=== PATIENT | female | born 1970 | race Hispanic/Latino ===

== ENCOUNTER 2017-12-12 06:14 | Day surgery (SDC) | payer MEDICAID ==
--- OUTSIDE RECORDS SUMMARY | 2017-12-12 06:46 | XMS REPORT ---
:1970 Author Organization [facility] Address [address] [place] [address] Dr. Ornelas [address] [place] [id number] Care Team Providers Name Role Phone UNKNOWN, REFFERING Primary Care Provider Unavailable SIRI PYLE Unavailable Unavailable Problems This patient has no known problems. Allergies, Adverse Reactions, Alerts This patient has no known allergies or adverse reactions. Medications This patient has no known medications. Encounters Start End Encounter Admission Attending Care Care Encounter Date/Time Date/Time Type Type Clinicians Facility Department ID 2017-08-22 2017-08-22 [id number] 22:07:00 22:07:00 SIRI Results Test Description Test Time Test Comments Text Results Atomic Results Result Comments CBC with Differential 2017-08-23 03:04:00 Test Item Value Reference Range Comments WBC (test code=WBC) 9.1 K/cumm 4.4-10.5 RBC (test code=RBC) 4.26 M/cumm 3.75-5.20 Hemoglobin (test code=HGB) 9.0 gm/dL 12.2-14.8 Hematocrit (test code=HCT) 33.4 % 36.5-44.4 MCV (test code=MCV) 78.5 fL 80-100 MCH (test code=MCH) 21.1 pg 27.0-32.5 MCHC (test code=MCHC) 26.9 g/dL 32.0-37.5 RDW (test code=RDW) 15.0 % 11.5-14.5 Platelet Count (test code=PLTCT) 344 K/cumm 140-440 MPV (test code=MPV) 10.6 fL Diff Method (test code=DIFFM) Manual Neutrophil (test code=NEUT) 65.0 % 36-70 Lymphocyte (test code=LYMPH) 28.0 % 12-44 Monocyte (test code=MONO) 3.0 % 0-11 Eosinophil (test code=EOS) 4.0 % 0-7 Neutro Abs (test code=ANEUT) 5.9 K/cumm 1.6-7.4 Lymph Abs (test code=ALYMPH) 2.5 K/cumm 0.5-4.6 Spencer Abs (test code=AMONO) 0.3 K/cumm 0.0-1.2 Eos Abs (test code=AEOS) 0.36 K/cumm 0.00-0.74 RBC Morphology (test code=RBCMRPH) Mod Hypochromia Platelet Est (test code=PLTEST) Normal Platelet on Smear Lipid [id number] 22:55:00 Test Item Value Reference Range Comments Cholesterol (test 258 mg/dL 0-200 code=CHOL) Triglycerides (test 122 mg/dL 9-200 code=TRIG) HDL (test code=HDL) 77 mg/dL 50-60 Chol/HDL (test 3.4 Ratio 0.0-4.4 code=CHOLPHDL) LDL, Calculated (test 157 0-130 (NOTE)RISK OF HEART code=LDLC) DISEASEPublished by [place] Heart AssociationAnalyte Optimal Boderline Increased RiskCHOL <200 200-239 >240TRIG <150 150-199 >200HDL Male: >60 <40HDL Female: >60 <50LDL <100 130-159 >160LDL NEAR OPTIMAL IS 100-129 VLDL (test code=VLDL) 24 mg/dL 5-40 LDL/HDL (test code=LDLPHDL) 2 [id number] 22:55:00 Test Item Value Reference Range Comments NT ProBnp (test code=PBNP) 8 pg/mL 0-124 Comprehensive Metabolic [id number] 22:55:00 Test Item Value Reference Range Comments Sodium (test code=NA) 140 mmol/L 135-145 Potassium (test code=K) 4.8 mmol/L 3.5-5.1 Chloride (test code=CL) 98 mmol/L 98-105 Carbon Dioxide (test 31 mmol/L 22-29 code=CO2) Glucose (test code=GLU) 117 mg/dL 70-115 Blood Urea Nitrogen 14 mg/dL 6-20 (test code=BUN) Creatinine (test 0.6 mg/dL 0.5-0.9 code=CREAT) Calcium (test code=CA) 9.5 mg/dL 8.3-10.5 Prot Total (test 7.8 g/dL 6.4-8.3 code=TP) Albumin (test code=ALB) 4.3 g/dL 3.5-5.2 A/G Ratio (test 1.2 Ratio code=AGRATIO) Globulin (test 3.5 2.9-3.1 code=GLOB) Bili Total (test <0.1 mg/dL 0.1-0.9 code=TBIL) Alk Phos (test 153 U/L 35-104 code=APHOS) AST (test code=AST) 16 U/L 1-32 ALT (test code=ALT) 22 U/L 1-33 BUN/Creatinine Ratio 23.3 (test code=BCRATIO) Anion Gap (test 11 mmol/L 7-16 code=AGAP) Estimated GFR (test >60 mL/min/1.73m2 eGFR (estimated Glomerular code=GFR) Filtration Rate) is an estimated value,calculated from the patient's serum creatinine using the MDRD equation.It is NOT the patient's actual GFR. The eGFR provides a more clinicallyuseful measure of kidney disease than serum creatinine alone.This calculation takes sex and race into account, if the informationis provided. If the race is not provided, and the patient isAfrican-[place], multiply by 1.212. If sex is not provided, and thepatient is female, multiply by 0.742. Results for patients <18 years ofage have not been validated by the MDRD study and should be interpretedwith caution.eGFR Result Interpretation:eGFR > or=60 is in the Normal RangeeGFR < 60 may mean kidney diseaseeGFR < 15 may mean kidney failureRanges recommended by the National Kidney Foundation,http://nkdep.nih .gov D-Dimer, [id number] 22:42:00 Test Item Value Reference Range Comments D-Dimer, Quant (test 296 ng/mL 0-500 Please note Change in unit of code=DDQNT) measure from mg/L FEU to ng/mLA cutoff of less than 500 ng/mL DD has a negative predictive value of100% for DVT qel009% for PE.When using D-Dimer to help rule out DVT or PE, clinical information anddisease probability should be considered.Elevated D-Dimer values are not specific for thromboembolism. B-Type Natriuretic [id number] 14:13:00 Test Item Value Reference Range Comments B-Type Natriuretic Peptide (test [id number]) <2.5 pg/mL 0.0-100.0 CBC with [id number] 21:56:00 Test Item Value Reference Range Comments WBC (test code=WBC) 6.5 K/cumm 4.4-10.5 RBC (test code=RBC) 4.29 M/cumm 3.75-5.20 Hemoglobin (test code=HGB) 10.8 gm/dL 12.2-14.8 Hematocrit (test code=HCT) 34.5 % 36.5-44.4 MCV (test code=MCV) 80.4 fL 80-100 MCH (test code=MCH) 25.2 pg 27.0-32.5 MCHC (test code=MCHC) 31.3 g/dL 32.0-37.5 RDW (test code=RDW) 17.2 % 11.5-14.5 Platelet Count (test code=PLTCT) 288 K/cumm 140-440 MPV (test code=MPV) 8.7 fL Diff Method (test code=DIFFM) Auto Neutrophil (test code=NEUT) 56.8 % 36-70 Lymphocyte (test code=LYMPH) 31.9 % 12-44 Monocyte (test code=MONO) 8.1 % 0-11 Eosinophil (test code=EOS) 2.8 % 0-7 Basophil (test code=BASO) 0.4 % 0-2 Neutro Abs (test code=ANEUT) 3.7 K/cumm 1.6-7.4 Lymph Abs (test code=ALYMPH) 2.1 K/cumm 0.5-4.6 Spencer Abs (test code=AMONO) 0.5 K/cumm 0.0-1.2 Eos Abs (test code=AEOS) 0.18 K/cumm 0.00-0.74 Baso Abs (test code=ABASO) 0.0 K/cumm 0.00-0.21 Hypochromic (test code=HYPO) Slight Comprehensive Metabolic [id number] 20:44:00 Test Item Value Reference Range Comments Sodium (test code=NA) 135 mmol/L 135-145 Potassium (test code=K) 4.3 mmol/L 3.5-5.1 Chloride (test code=CL) 97 mmol/L 98-105 Carbon Dioxide (test 26 mmol/L 22-29 code=CO2) Glucose (test code=GLU) 89 mg/dL 70-115 Blood Urea Nitrogen 12 mg/dL 6-20 (test code=BUN) Creatinine (test 0.6 mg/dL 0.5-0.9 code=CREAT) Calcium (test code=CA) 8.8 mg/dL 8.3-10.5 Prot Total (test 7.2 g/dL 6.4-8.3 code=TP) Albumin (test code=ALB) 4.2 g/dL 3.5-5.2 A/G Ratio (test 1.4 Ratio code=AGRATIO) Globulin (test 3.0 2.9-3.1 code=GLOB) Bili Total (test <0.1 mg/dL 0.1-0.9 code=TBIL) Alk Phos (test 167 U/L 35-104 code=APHOS) AST (test code=AST) 17 U/L 1-32 ALT (test code=ALT) 23 U/L 1-33 BUN/Creatinine Ratio 20.0 (test code=BCRATIO) Anion Gap (test 12 mmol/L 7-16 code=AGAP) Estimated GFR (test >60 mL/min/1.73m2 eGFR (estimated Glomerular code=GFR) Filtration Rate) is an estimated value,calculated from the patient's serum creatinine using the MDRD equation.It is NOT the patient's actual GFR. The eGFR provides a more clinicallyuseful measure of kidney disease than serum creatinine alone.This calculation takes sex and race into account, if the informationis provided. If the race is not provided, and the patient isAfrican[place], multiply by 1.212. If sex is not provided, and thepatient is female, multiply by 0.742. Results for patients <18 years ofage have not been validated by the MDRD study and should be interpretedwith caution.eGFR Result Interpretation:eGFR > or=60 is in the Normal RangeeGFR < 60 may mean kidney diseaseeGFR < 15 may mean kidney failureRanges recommended by the National Kidney Foundation,http://nkdep.nih .gov Lipid [id number] 20:44:00 Test Item Value Reference Range Comments Cholesterol (test 253 mg/dL 0-200 code=CHOL) Triglycerides (test 124 mg/dL 9-200 code=TRIG) HDL (test code=HDL) 83 mg/dL 50-60 Chol/HDL (test 3.0 Ratio 0.0-4.4 code=CHOLPHDL) LDL, Calculated (test 145 0-130 (NOTE)RISK OF HEART code=LDLC) DISEASEPublished by [place] Heart AssociationAnalyte Optimal Boderline Increased RiskCHOL <200 200-239 >240TRIG <150 150-199 >200HDL Male: >60 <40HDL Female: >60 <50LDL <100 130-159 >160LDL NEAR OPTIMAL IS 100-129 VLDL (test code=VLDL) 25 mg/dL 5-40 LDL/HDL (test code=LDLPHDL) 2
[2017-12-12] MEDS ORDERED: Ringers Lactate 1,000 ML IV ONE (06:57)
[2017-12-12] MEDS ORDERED: PROPOFOL 200 MG/20 ML VIAL IV ONE ×2 (07:38→09:23)
[2017-12-12] MEDS ORDERED: LIDOCAINE 1% MPF 2 ML AMPULE ONE (07:38)
[2017-12-12] MEDS ORDERED: HYDROCODONE/APAP 5/325 MG TAB ONE (10:34)
--- NOTE | 2017-12-12 11:06 | OP ---
Date of Procedure: 12/12/2017 Surgeon: Juan Diego Hicks MD Procedure Performed: Colonoscopy. Indication For Procedure: Rectal bleeding, iron deficiency anemia. Plan For Anesthesia: Monitored anesthesia care. Complexity: High due to the patient's comorbidities. Technique: After obtaining informed consent from the patient, explaining risks and complications whi ch include, but are not limited to bleeding, infection, perforation, and anesthesia complications. T he patient was placed in the left lateral position and sedation was given. From then on, a digital r ectal exam was performed. Scope was advanced through the rectum and carefully guided up till the cec um. The cecum was identified by the appendiceal orifice and ileocecal valve. Subsequently, the scop e gradually withdrawn while carefully examining the mucosa. The scope withdrawal time was 10 minutes . Quality of prep according to Coral prep score; right side 2+, middle 2+, left side 1 which is equ al to 5 x 9. Reasonable visualization was obtained. Findings: Scattered diverticulosis throughout the entire length of the colon. These were small to m edium in size. No colitis or mass lesions seen. Retroflexion did reveal medium size internal hemorr hoids with some stigmata of bleeding. Also, digital rectal exam revealed large external hemorrhoids. Random biopsies were taken from the colon to rule out microscopic colitis. Complications: None. Tolerance To Anesthesia: Excellent. Postoperative Diagnosis: Diverticulosis and internal hemorrhoids as well as external hemorrhoids. Plan: 1.Await pathology results. 2.If not already done, we will do small bowel follow-through and consider capsule endoscopy if not d one in regard to the bright red bleeding, likely related to hemorrhoids. We would recommend surgical evaluation. Follow up in the GI clinic in 2 weeks. US/MODL Voice ID: [id number] Report ID: [id number]
== END 2017-12-12 09:46 | disposition home or self-care (01) ==
LOC: OR 06:14
PROVIDERS: ATTEND Internal Medicine Gastroenterology
PROC: 0DBE8ZX Excision of Large Intestine, Via Natural or Artificial Opening Endoscopic, Diagnostic (ICD-10-PCS; principal; 2017-12-12 07:30)
DX: K57.90 Diverticulosis of intestine, part unspecified, without perforation or abscess without bleeding (principal); K64.8 Other hemorrhoids; D50.9 Iron deficiency anemia, unspecified; K64.4 Residual hemorrhoidal skin tags; E11.9 Type 2 diabetes mellitus without complications; I10 Essential (primary) hypertension; E66.9 Obesity, unspecified; J44.9 Chronic obstructive pulmonary disease, unspecified; Z86.73 Personal history of transient ischemic attack (TIA), and cerebral infarction without residual deficits; Z80.0 Family history of malignant neoplasm of digestive organs
CPT/HCPCS: 88305; J2001

== ENCOUNTER 2021-02-19 20:18 | Emergency (ER) | payer OTHER, SELFPAY ==
--- OUTSIDE RECORDS SUMMARY | 2021-02-19 20:24 | XMS REPORT | Continuity of Care Document ---
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 in Serum or Plasma (test code = 3097-3) sodium level (test code = sodium 139 mmol/L 135-145 level) potassium level (test code = 4.4 mmol/L 3.5-5.2 potassium level) chloride level (test code = 101 mmol/L 98-108 chloride level) CO2 (test code = CO2) 29 mmol/L 21-32 anion gap (test code = anion gap) 13.4 mEq/L 12-20 calcium level (test code = 9.5 mg/dL 8.6-10.0 calcium level) total protein (test code = total 7.6 g/dL 6.6-8.7 protein) albumin (test code = albumin) 4.4 g/dL 3.5-5.2 globulin (test code = globulin) 3.2 gm/dL A/G ratio (test code = A/G ratio) 1.4 >1.0 bilirubin,total (test code = <0.3 0.0-1.2 bilirubin,total) AST/SGOT (test code = AST/SGOT) 30 U/L 15-32 Alanine aminotransferase 31 U/L 0-33 [Enzymatic activity/volume] in Serum or Plasma (test code = 1742-6) Alkaline phosphatase [Enzymatic 201 U/L 35-105 H activity/volume] in Serum or Plasma (test code = 6768-6) [facility] W Auto Differential panel - [id number] 01:10:00 Test Item Value Reference Range Interpretation Comments white blood count (test code = 8.3 K/uL 4.0-11.5 white blood count) red blood count (test code = red 4.38 M/uL 3.80-5.20 blood count) hemoglobin (test code = 10.5 g/dL 10.5-15.7 hemoglobin) hematocrit (test code = 35.4 % 34.0-50.0 hematocrit) MCV [Entitic volume] (test code = 80.8 fL 86-100 L 88500-6) mean corpuscular hemoglobin (test 24.0 pg 26.2-33.4 L code = mean corpuscular hemoglobin) mean corpuscular HGB conc (test 29.7 g/dL 30-34 L code = mean corpuscular HGB conc) red cell distribution width (test 14.7 % 12.0-15.5 code = red cell distribution width) platelet count (test code = 272 K/uL 165-450 platelet count) mean platelet volume (test code = 9.2 fL 9.4-12.6 L mean platelet volume) Segmented neutrophils/100 66.8 % 44.4-80.1 leukocytes in Blood (test code = 04252-3) Immature granulocytes [#/volume] 0.0 K/uL 0.0-0.03 in Blood (test code = 82257-1) lymphocyte% (test code = 23.7 % 10.0-50.0 lymphocyte%) mono % (test code = mono %) 6.4 % 3.6-12.0 eos % (test code = eos %) 2.6 % 0.0-5.4 Basophils/100 leukocytes in 0.1 % 0.1-1.2 Unspecified specimen (test code = 81893-1) Band form neutrophils [#/volume] 5.55 K/uL 1.56-6.13 in Blood (test code = 38015-7) Lymphocytes [#/volume] in 2.0 K/uL 1.18-3.74 Unspecified specimen by Automated count (test code = 53116-2) mono # (test code = mono #) 0.53 K/uL 0.24-0.86 eos # (test code = eos #) 0.22 K/uL 0.04-0.36 basophil # (test code = basophil 0.01 K/uL 0.01-0.08 #) NRBC% (test code = NRBC%) 0 /100 WBC 0-0.2 NRBC# (test code = NRBC#) 0 K/uL [facility] - Serum or Plasma 2020-12-02 01:10:00 Test Item Value Reference Range Interpretation Comments Glucose [Mass/volume] in Serum or 122 mg/dL 74-106 H Plasma (test code = 2345-7) Urea nitrogen [Mass/volume] in 9 mg/dL 6-20 Serum or Plasma (test code = 3094-0) osmolality calculated,serum (test 278 mOsm/kg 280-300 L code = osmolality calculated,serum) creatinine (test code = 0.5 mg/dL 0.50-0.90 creatinine) glomerular filtration rate (test >60.00 code = glomerular filtration rate) Urea nitrogen/Creatinine [Mass 18.0 12-20 Ratio] in Serum or Plasma (test code = 3097-3) sodium level (test code = sodium 139 mmol/L 135-145 level) potassium level (test code = 4.4 mmol/L 3.5-5.2 potassium level) chloride level (test code = 101 mmol/L 98-108 chloride level) CO2 (test code = CO2) 29 mmol/L 21-32 anion gap (test code = anion gap) 13.4 mEq/L 12-20 calcium level (test code = 9.5 mg/dL 8.6-10.0 calcium level) total protein (test code = total 7.6 g/dL 6.6-8.7 protein) albumin (test code = albumin) 4.4 g/dL 3.5-5.2 globulin (test code = globulin) 3.2 gm/dL A/G ratio (test code = A/G ratio) 1.4 >1.0 bilirubin,total (test code = <0.3 0.0-1.2 bilirubin,total) AST/SGOT (test code = AST/SGOT) 30 U/L 15-32 Alanine aminotransferase 31 U/L 0-33 [Enzymatic activity/volume] in Serum or Plasma (test code = 1742-6) Alkaline phosphatase [Enzymatic 201 U/L 35-105 H activity/volume] in Serum or Plasma (test code = 6768-6) [facility] [Mass/volume] in Serum or [id number] 00:00:00 Test Item Value Reference Range Interpretation Comments phenytoin dilantin (test code = 15.0 ug/mL 10.0-20.0 phenytoin dilantin) [facility] [Mass/volume] in Serum or [id number] 00:00:00 Test Item Value Reference Range Interpretation Comments phenytoin dilantin (test code = 15.0 ug/mL 10.0-20.0 phenytoin dilantin) [facility] System[facility]inal[facility] macro (dipstick) panel - [id number] 14:01:52 Test Item Value Reference Range Interpretation Comments Leukocytes (test code = Leukocytes) Negative Nitrite (test code = Nitrite) negative Urobilinogen (test code = .2 Urobilinogen) Protein (test code = Protein) Negative pH (test code = pH) 5.5 Blood (test code = Blood) Negative Specific Gomer (test code = 1.025 Specific Gomer) Ketone (test code = Ketone) Negative Bilirubin (test code = Bilirubin) Negative Glucose (test code = Glucose) Negative Appearance (test code = Appearance) Clear Color (test code = Color) Yellow [facility] [id number] 23:25:34 Test Item Value Reference Range Interpretation Comments Sodium Level (test code = Sodium 142.0 mmol/L 135.0-145.0 Level) Potassium Level (test code = 4.4 mmol/L 3.5-5.1 Potassium Level) Chloride Level (test code = 102 mmol/L 98-105 Chloride Level) CO2 (test code = CO2) 27 mmol/L 22-29 Anion Gap (test code = Anion 13 mmol/L 7-16 Gap) BUN (test code = BUN) 9.90 mg/dL 6.00-20.00 Creatinine Level (test code = 0.60 mg/dL 0.50-0.90 Creatinine Level) BUN/Creat Ratio (test code = 16 N BUN/Creat Ratio) Glucose Level (test code = 127 mg/dL 70-115 H Glucose Level) Calcium Level (test code = 9.1 mg/dL 8.3-10.5 Calcium Level) Alk Phos (test code = Alk Phos) 230 U/L 35-104 H Bilirubin Total (test code = <0.1 mg/dL 0.1-0.9 Bilirubin Total) Albumin Level (test code = 4.3 g/dL 3.5-5.2 Albumin Level) Protein Total (test code = 7.1 g/dL 6.4-8.3 Protein Total) ALT (test code = ALT) 34 U/L 1-33 H AST (test code = AST) 26 U/L 1-32 Globulin (test code = Globulin) 2.8 g/dL 2.9-3.1 L A/G Ratio (test code = A/G 1.5 ratio N Ratio) Comprehensive Metabolic [id number] 23:25:34 Test Item Value Reference Range Interpretation Comments Sodium Level (test 142.0 mmol/L 135.0-145.0 code = Sodium Level) Potassium Level 4.4 mmol/L 3.5-5.1 (test code = Potassium Level) Chloride Level (test 102 mmol/L 98-105 code = Chloride Level) CO2 (test code = 27 mmol/L 22-29 CO2) Anion Gap (test code 13 mmol/L 7-16 = Anion Gap) BUN (test code = 9.90 mg/dL 6.00-20.00 BUN) Creatinine Level 0.60 mg/dL 0.50-0.90 (test code = Creatinine Level) BUN/Creat Ratio 16 N (test code = BUN/Creat Ratio) Glucose Level (test 127 mg/dL 70-115 H code = Glucose Level) Calcium Level (test 9.1 mg/dL 8.3-10.5 code = Calcium Level) Alk Phos (test code 230 U/L 35-104 H = Alk Phos) Bilirubin Total <0.1 mg/dL 0.1-0.9 (test code = Bilirubin Total) Albumin Level (test 4.3 g/dL 3.5-5.2 code = Albumin Level) Protein Total (test 7.1 g/dL 6.4-8.3 code = Protein Total) ALT (test code = 34 U/L 1-33 H ALT) AST (test code = 26 U/L 1-32 AST) Globulin (test code 2.8 g/dL 2.9-3.1 L = Globulin) A/G Ratio (test code 1.5 ratio N = A/G Ratio) eGFR AA (test code = >60 N eGFR (e stimated eGFR AA) mL/min/1.73 m2 Glomerular Filtration Rate ) is an estimated va lue, calculated from the patient's serum creatinine usin g the MDRD equation. It is NOT the patient 's actual GFR. The eGFR provides a more clinically usef ul measure of kidn ey disease than se rum creatinine alone.This calculation kalli es sex and race in to account, if the information is provided. If th e race is not provided, and t he patient is -Caroline n, multiply by 1.2 12. If sex is not provided, and t he patient is fema le, multiply by 0.7 42. Results for pat ients <18 years of ag e have not been validated by th e MDRD study and should be interpreted wit h caution. eGFR R esult Interpretation: eGFR > or = 60 is in the Normal RangeeGF R < 60 may mean kid yadi diseaseeGFR < 1 5 may mean kidney failure Rang es recommended by the National Kidney Foundation, http://nkdep.ni h.gov Lipid [id number] 23:25:34 Test Item Value Reference Range Interpretation Comments Cholesterol Total 245 mg/dL 0-200 H RISK OF HE ART (test code = DISEASEPublishe d by Cholesterol Total) [place] [employer] Mounika lyte Optimal Borderl ine Increased RiskC HOL <200 200-239 >2 40TRIG <150 150-199 >2 00HDL Male >60 <40H DL Female >60 <5 0LDL <100 130-159 >1 60LDL Near optimal is 100-129 Triglycerides (test 133 mg/dL 9-200 code = Triglycerides) HDL (test code = HDL) 69 mg/dL 50-60 H LDL (test code = LDL) 150 mg/dL 0-130 H The eq uation being used in this calcula tion is LDL = (Chol - H DL) - (Trig / 5) VLDL (test code = 27 mg/dL 5-40 The equati on being used VLDL) in this calcula tion is VLDL = Trig / 5 Chol/HDL (test code = 3.6 ratio 0.0-4.4 Chol/HDL) LDL/HDL Ratio (test 2 N The equa tion being used code = LDL/HDL Ratio) in thi s calculation is LDL/HDL Ratio=L DL Calc/HDL Chol Comprehensive Metabolic [id number] 23:25:34 Test Item Value Reference Range Interpretation Comments Sodium Level (test 142.0 mmol/L 135.0-145.0 code = Sodium Level) Potassium Level 4.4 mmol/L 3.5-5.1 (test code = Potassium Level) Chloride Level (test 102 mmol/L 98-105 code = Chloride Level) CO2 (test code = 27 mmol/L 22-29 CO2) Anion Gap (test code 13 mmol/L 7-16 = Anion Gap) BUN (test code = 9.90 mg/dL 6.00-20.00 BUN) Creatinine Level 0.60 mg/dL 0.50-0.90 (test code = Creatinine Level) BUN/Creat Ratio 16 N (test code = BUN/Creat Ratio) Glucose Level (test 127 mg/dL 70-115 H code = Glucose Level) Calcium Level (test 9.1 mg/dL 8.3-10.5 code = Calcium Level) Alk Phos (test code 230 U/L 35-104 H = Alk Phos) Bilirubin Total <0.1 mg/dL 0.1-0.9 (test code = Bilirubin Total) Albumin Level (test 4.3 g/dL 3.5-5.2 code = Albumin Level) Protein Total (test 7.1 g/dL 6.4-8.3 code = Protein Total) ALT (test code = 34 U/L 1-33 H ALT) AST (test code = 26 U/L 1-32 AST) Globulin (test code 2.8 g/dL 2.9-3.1 L = Globulin) A/G Ratio (test code 1.5 ratio N = A/G Ratio) eGFR AA (test code = >60 N eGFR (e stimated eGFR AA) mL/min/1.73 m2 Glomerular Filtration Rate ) is an estimated va lue, calculated from the patient's serum creatinine usin g the MDRD equation. It is NOT the patient 's actual GFR. The eGFR provides a more clinically usef ul measure of kidn ey disease than se rum creatinine alone.This calculation kalli es sex and race in to account, if the information is provided. If th e race is not provided, and t he patient is -Caroline n, multiply by 1.2 12. If sex is not provided, and t he patient is fema le, multiply by 0.7 42. Results for pat ients <18 years of ag e have not been validated by [facility] MDRD study and should be interpreted wit h caution. eGFR R esult Interpretation: eGFR > or = 60 is in the Normal RangeeGF R < 60 may mean kid yadi diseaseeGFR < 1 5 may mean kidney failure Rang es recommended by the National Kidney Foundation, http://nkdep.ni h.gov eGFR Non-AA (test >60.00 N eGFR (anurag mated code = eGFR Non-AA) mL/min/1.73 m2 Glomer ular Filtration Rate ) is an estimated va lue, calculated from the patient's serum creatinine usin g the MDRD equation. It is NOT the patient 's actual GFR. The eGFR provides a more clinically usef ul measure of kidn ey disease than se rum creatinine alone.This calculation kalli es sex and race in to account, if the information is provided. If th e race is not provided, and t he patient is -Caroline n, multiply by 1.2 12. If sex is not provided, and t he patient is fema le, multiply by 0.7 42. Results for pat ients <18 years of ag e have not been validated by [facility] MDRD study and should be interpreted wit h caution. eGFR R esult Interpretation: eGFR > or = 60 is in the Normal RangeeGF R < 60 may mean kid yadi diseaseeGFR < 1 5 may mean kidney failure Rang es recommended by the National Kidney Foundation, http://nkdep.ni h.gov IG [id number] 22:56:30 Test Item Value Reference Range Interpretation Comments IG (test code = IG) 0.2 % 0.0-5.0 IG Abs (test code = IG Abs) 0 x10 N Complete Blood Count with [id number] 22:56:29 Test Item Value Reference Range Interpretation Comments WBC (test code = WBC) 5.7 x10 4.4-10.5 RBC (test code = RBC) 4.54 x10 3.75-5.20 Hgb (test code = Hgb) 13.3 g/dL 12.2-14.8 Hct (test code = Hct) 43.6 % 36.5-44.4 MCV (test code = MCV) 96.00 fL 80.00-100.00 MCHC (test code = 30.50 g/dL 32.00-37.50 L MCHC) MCH (test code = MCH) 29.3 pg 27.0-32.5 RDW CV (test code = 14.6 % 11.5-14.5 H RDW CV) Platelets (test code = 159.0 x10 140.0-440.0 Platelets) MPV (test code = MPV) 11.4 fL N Slide Review (test Auto Auto Result cr eated by code = Slide Review) GL_SJM_ SLIDE_REV_AUTO nRBC (test code = 0 N nRBC) NRBC Abs (test code = 0.00 x10 N NRBC Abs) IPF (test code = IPF) 0 % N Automated [id number] 22:56:29 Test Item Value Reference Range Interpretation Comments Neutro Auto (test code = Neutro 55.8 % 36.0-70.0 Auto) Lymph Auto (test code = Lymph Auto) 36.9 % 12.0-44.0 Menard Auto (test code = Menard Auto) 4.5 % 0.0-11.0 Eos, Auto (test code = Eos, Auto) 2.3 % 0.0-7.0 Basophil Auto (test code = Basophil 0.3 % 0.0-2.0 Auto) Neutro Absolute (test code = Neutro 3.2 x10 1.6-7.4 Absolute) Lymph Absolute (test code = Lymph 2.11 x10 .50-4.60 Absolute) Menard Absolute (test code = Menard .26 x10 .00-1.20 Absolute) Eos Absolute (test code = Eos 0.13 x10 0.00-0.74 Absolute) Baso Absolute (test code = Baso 0.02 x10 0.00-0.21 Absolute) [id number] 07:23:00 Test Item Value Reference Range Interpretation Comments prothrombin time (test code = 9.9 seconds 10.3-12.3 L prothrombin time) INR in Blood by Coagulation assay 0.90 (test code = 50449-4) [facility] [id number] 07:23:00 Test Item Value Reference Range Interpretation Comments INR in Blood by Coagulation 28.9 seconds 22.5-37.0 assay (test code = 65638-0) [facility]/[id number] 07:23:00 Test Item Value Reference Range Interpretation Comments prothrombin time (test code = 9.9 seconds 10.3-12.3 L prothrombin time) INR in Blood by Coagulation assay 0.90 (test code = 87682-3) [facility] [id number] 07:23:00 Test Item Value Reference Range Interpretation Comments INR in Blood by Coagulation 28.9 seconds 22.5-37.0 assay (test code = 62533-1) [facility] [id number] 07:00:00[facility] [id number] 07:00:00Results [facility] W Auto Differential panel - [id number] 10:32:00 Test Item Value Reference Range Interpretation Comments white blood count (test code = 6.4 K/uL 4.0-11.5 white blood count) red blood count (test code = red 3.90 M/uL 3.80-5.20 blood count) Hemoglobin [Mass/volume] in Blood 8.9 g/dL 10.5-15.7 L (test code = 718-7) hematocrit (test code = hematocrit) 30.7 % 34.0-50.0 L Erythrocyte mean corpuscular volume 78.8 fL 78-98 [Entitic volume] (test code = 67823-8) Erythrocyte mean corpuscular 22.8 pg 26.2-33.4 L hemoglobin [Entitic mass] (test code = 44463-7) mean corpuscular HGB conc (test 29.0 g/dL 31.5-36.2 L code = mean corpuscular HGB conc) red cell distribution width (test 19.4 % 11.5-15.5 H code = red cell distribution width) Platelets [#/volume] in Blood (test 312 K/uL 137-338 code = 74802-6) Platelet mean volume [Entitic 5.8 fL 8.4-11.8 L volume] in Blood (test code = 55753-6) Neutrophils.band form/100 60.7 % 44.4-80.1 leukocytes in Blood (test code = 70611-4) Lymphocytes/100 leukocytes in Body 30.4 % 10.0-50.0 fluid (test code = 26301-9) Monocytes/100 leukocytes in Blood 4.8 % 3.6-12.04 by Automated count (test code = 5905-5) Eosinophils/100 leukocytes in Blood 3.2 % 0.0-5.41 by Automated count (test code = 713-8) Basophils/100 leukocytes in Blood 0.9 % 0.0-0.79 H by Automated count (test code = 706-2) [facility] metabolic 2000 panel - Serum or [id number] 10:32:00 Test Item Value Reference Range Interpretation Comments Glucose [Mass/volume] in Serum or 128 mg/dL 74-106 H Plasma (test code = 2345-7) Urea nitrogen [Mass/volume] in 9 mg/dL 6-20 Serum or Plasma (test code = 3094-0) Osmolality of Serum or Plasma 282 280-300 (test code = 2692-2) creatinine (test code = 0.6 mg/dL 0.50-0.90 creatinine) glomerular filtration rate (test >60.00 code = glomerular filtration rate) Urea nitrogen/Creatinine [Mass 15.0 12-20 Ratio] in Serum or Plasma (test code = 3097-3) sodium level (test code = sodium 141 mmol/L 135-145 level) potassium level (test code = 4.6 mmol/L 3.5-5.2 potassium level) chloride level (test code = 103 mmol/L 98-108 chloride level) CO2 (test code = CO2) 29 mmol/L 21-32 anion gap (test code = anion gap) 13.6 mEq/L 12-20 calcium level (test code = calcium 9.0 mg/dL 8.6-10.0 level) [facility] W Auto Differential panel - [id number] 10:32:00 Test Item Value Reference Range Interpretation Comments white blood count (test code = 6.4 K/uL 4.0-11.5 white blood count) red blood count (test code = red 3.90 M/uL 3.80-5.20 blood count) Hemoglobin [Mass/volume] in Blood 8.9 g/dL 10.5-15.7 L (test code = 718-7) hematocrit (test code = hematocrit) 30.7 % 34.0-50.0 L Erythrocyte mean corpuscular volume 78.8 fL 78-98 [Entitic volume] (test code = 17335-8) Erythrocyte mean corpuscular 22.8 pg 26.2-33.4 L hemoglobin [Entitic mass] (test code = 68763-5) mean corpuscular HGB conc (test 29.0 g/dL 31.5-36.2 L code = mean corpuscular HGB conc) red cell distribution width (test 19.4 % 11.5-15.5 H code = red cell distribution width) Platelets [#/volume] in Blood (test 312 K/uL 137-338 code = 05439-8) Platelet mean volume [Entitic 5.8 fL 8.4-11.8 L volume] in Blood (test code = 02041-8) Neutrophils.band form/100 60.7 % 44.4-80.1 leukocytes in Blood (test code = 49996-9) Lymphocytes/100 leukocytes in Body 30.4 % 10.0-50.0 fluid (test code = 55529-6) Monocytes/100 leukocytes in Blood 4.8 % 3.6-12.04 by Automated count (test code = 5905-5) Eosinophils/100 leukocytes in Blood 3.2 % 0.0-5.41 by Automated count (test code = 713-8) Basophils/100 leukocytes in Blood 0.9 % 0.0-0.79 H by Automated count (test code = 706-2) [facility] metabolic 2000 panel - Serum or [id number] 10:32:00 Test Item Value Reference Range Interpretation Comments Glucose [Mass/volume] in Serum or 128 mg/dL 74-106 H Plasma (test code = 2345-7) Urea nitrogen [Mass/volume] in 9 mg/dL 6-20 Serum or Plasma (test code = 3094-0) Osmolality of Serum or Plasma 282 280-300 (test code = 2692-2) creatinine (test code = 0.6 mg/dL 0.50-0.90 creatinine) glomerular filtration rate (test >60.00 code = glomerular filtration rate) Urea nitrogen/Creatinine [Mass 15.0 12-20 Ratio] in Serum or Plasma (test code = 3097-3) sodium level (test code = sodium 141 mmol/L 135-145 level) potassium level (test code = 4.6 mmol/L 3.5-5.2 potassium level) chloride level (test code = 103 mmol/L 98-108 chloride level) CO2 (test code = CO2) 29 mmol/L 21-32 anion gap (test code = anion gap) 13.6 mEq/L 12-20 calcium level (test code = calcium 9.0 mg/dL 8.6-10.0 level) [facility] with [id number] 03:04:00 Test Item Value Reference Range Interpretation Comments WBC (test code = WBC) 9.1 K/cumm 4.4-10.5 N RBC (test code = RBC) 4.26 M/cumm 3.75-5.20 N Hemoglobin (test code 9.0 gm/dL 12.2-14.8 L = HGB) Hematocrit (test code 33.4 % 36.5-44.4 L = HCT) MCV (test code = MCV) 78.5 fL 80-100 L MCH (test code = MCH) 21.1 pg 27.0-32.5 L MCHC (test code = 26.9 g/dL 32.0-37.5 L MCHC) RDW (test code = RDW) 15.0 % 11.5-14.5 H Platelet Count (test 344 K/cumm 140-440 N code = PLTCT) MPV (test code = MPV) 10.6 fL Diff Method (test code Manual = DIFFM) Neutrophil (test code 65.0 % 36-70 N = NEUT) Lymphocyte (test code 28.0 % 12-44 N = LYMPH) Monocyte (test code = 3.0 % 0-11 N MONO) Eosinophil (test code 4.0 % 0-7 N = EOS) Neutro Abs (test code 5.9 K/cumm 1.6-7.4 N = ANEUT) Lymph Abs (test code = 2.5 K/cumm 0.5-4.6 N ALYMPH) Menard Abs (test code = 0.3 K/cumm 0.0-1.2 N AMONO) Eos Abs (test code = 0.36 K/cumm 0.00-0.74 N AEOS) RBC Morphology (test Mod Hypochromia code = RBCMRPH) Platelet Est (test Normal Platelet on code = PLTEST) Smear Lipid [id number] 22:55:00 Test Item Value Reference Range Interpretation Comments Cholesterol (test 258 mg/dL 0-200 H code = CHOL) Triglycerides (test 122 mg/dL 9-200 N code = TRIG) HDL (test code = 77 mg/dL 50-60 H HDL) Chol/HDL (test code 3.4 Ratio 0.0-4.4 N = CHOLPHDL) LDL, Calculated 157 0-130 H (NOTE)RISK O F HEART (test code = LDLC) DISEASEPu blished by [place] Heart AssociationAnal yte Optim al Boderline Increased RiskC HOL <200 200-239 >240TRI G <150 150-199 >200HDL Male: >60 <40HDL Female: >60 <50 LDL < 100 130-15 9 >160 LDL NEAR OPTIMAL IS 100- 129 VLDL (test code = 24 mg/dL 5-40 N VLDL) LDL/HDL (test code = 2 LDLPHDL) [id number] 22:55:00 Test Item Value Reference Range Interpretation Comments NT ProBnp (test code = PBNP) 8 pg/mL 0-124 N Comprehensive Metabolic [id number] 22:55:00 Test Item Value Reference Range Interpretation Comments Sodium (test code = 140 mmol/L 135-145 N NA) Potassium (test 4.8 mmol/L 3.5-5.1 N code = K) Chloride (test code 98 mmol/L 98-105 N = CL) Carbon Dioxide 31 mmol/L 22-29 H (test code = CO2) Glucose (test code 117 mg/dL 70-115 H = GLU) Blood Urea Nitrogen 14 mg/dL 6-20 N (test code = BUN) Creatinine (test 0.6 mg/dL 0.5-0.9 N code = CREAT) Calcium (test code 9.5 mg/dL 8.3-10.5 N = CA) Prot Total (test 7.8 g/dL 6.4-8.3 N code = TP) Albumin (test code 4.3 g/dL 3.5-5.2 N = ALB) A/G Ratio (test 1.2 Ratio code = AGRATIO) Globulin (test code 3.5 2.9-3.1 H = GLOB) Bili Total (test <0.1 mg/dL 0.1-0.9 L code = TBIL) Alk Phos (test code 153 U/L 35-104 H = APHOS) AST (test code = 16 U/L 1-32 N AST) ALT (test code = 22 U/L 1-33 N ALT) BUN/Creatinine 23.3 Ratio (test code = BCRATIO) Anion Gap (test 11 mmol/L 7-16 N code = AGAP) Estimated GFR (test >60 eGFR (es timated code = GFR) mL/min/1.73m2 Glomerular Josué tration Rate) is an est imated value,calculate d from the patient's s dana creatinine usin g the MDRD equation.I t is NOT the patient 's actual GFR. The eGFR provides a more clinicallyusefu l measure of kidn ey disease than se rum creatinine alone.This calculation kalli es sex and race into account, if the informationis provided. If th e race is not provided , and the patient isAfrican-Ameri can, multiply by 1.2 12. If sex is not prov ided, and thepatient is female, multipl y by 0.742. Results for patients <18 ye ars ofage have not been validated by th e MDRD study and shoul d be interpretedwith caution.eGFR Re sult Interpretation: eGFR > or = 60 is in t he Normal RangeeGF R < 60 may mean kidney diseaseeGFR < 1 5 may mean kidney failureRange s recommended by the National Kidney Foundation,http ://nkd ep.nih.gov D-Dimer, [id number] 22:42:00 Test Item Value Reference Range Interpretation Comments D-Dimer, Quant 296 ng/mL 0-500 N Please not e Change in (test code = DDQNT) unit of measure from mg/L FEU to ng/mLA cutoff of less than 500 n g/mL DD has a negative predictive value of100% fo r DVT qfx497% for PE .When using D-Dimer t o help rule out DVT or PE, clinical inform ation anddisease prob ability should be considered.Elev ated D-Dimer values are not specific for thromboembolism . B-Type Natriuretic [id number] 14:13:00 Test Item Value Reference Range Interpretation Comments B-Type Natriuretic Peptide (test <2.5 pg/mL 0.0-100.0 N code = 955305) CBC with [id number] 21:56:00 Test Item Value Reference Range Interpretation Comments WBC (test code = WBC) 6.5 K/cumm 4.4-10.5 N RBC (test code = RBC) 4.29 M/cumm 3.75-5.20 N Hemoglobin (test code = HGB) 10.8 gm/dL 12.2-14.8 L Hematocrit (test code = HCT) 34.5 % 36.5-44.4 L MCV (test code = MCV) 80.4 fL 80-100 N MCH (test code = MCH) 25.2 pg 27.0-32.5 L MCHC (test code = MCHC) 31.3 g/dL 32.0-37.5 L RDW (test code = RDW) 17.2 % 11.5-14.5 H Platelet Count (test code = 288 K/cumm 140-440 N PLTCT) MPV (test code = MPV) 8.7 fL Diff Method (test code = DIFFM) Auto Neutrophil (test code = NEUT) 56.8 % 36-70 N Lymphocyte (test code = LYMPH) 31.9 % 12-44 N Monocyte (test code = MONO) 8.1 % 0-11 N Eosinophil (test code = EOS) 2.8 % 0-7 N Basophil (test code = BASO) 0.4 % 0-2 N Neutro Abs (test code = ANEUT) 3.7 K/cumm 1.6-7.4 N Lymph Abs (test code = ALYMPH) 2.1 K/cumm 0.5-4.6 N Menard Abs (test code = AMONO) 0.5 K/cumm 0.0-1.2 N Eos Abs (test code = AEOS) 0.18 K/cumm 0.00-0.74 N Baso Abs (test code = ABASO) 0.0 K/cumm 0.00-0.21 N Hypochromic (test code = HYPO) Slight Comprehensive Metabolic [id number] 20:44:00 Test Item Value Reference Range Interpretation Comments Sodium (test code = 135 mmol/L 135-145 N NA) Potassium (test 4.3 mmol/L 3.5-5.1 N code = K) Chloride (test code 97 mmol/L 98-105 L = CL) Carbon Dioxide 26 mmol/L 22-29 N (test code = CO2) Glucose (test code 89 mg/dL 70-115 N = GLU) Blood Urea Nitrogen 12 mg/dL 6-20 N (test code = BUN) Creatinine (test 0.6 mg/dL 0.5-0.9 N code = CREAT) Calcium (test code 8.8 mg/dL 8.3-10.5 N = CA) Prot Total (test 7.2 g/dL 6.4-8.3 N code = TP) Albumin (test code 4.2 g/dL 3.5-5.2 N = ALB) A/G Ratio (test 1.4 Ratio code = AGRATIO) Globulin (test code 3.0 2.9-3.1 N = GLOB) Bili Total (test <0.1 mg/dL 0.1-0.9 L code = TBIL) Alk Phos (test code 167 U/L 35-104 H = APHOS) AST (test code = 17 U/L 1-32 N AST) ALT (test code = 23 U/L 1-33 N ALT) BUN/Creatinine 20.0 Ratio (test code = BCRATIO) Anion Gap (test 12 mmol/L 7-16 N code = AGAP) Estimated GFR (test >60 eGFR (es timated code = GFR) mL/min/1.73m2 Glomerular Josué tration Rate) is an est imated value,calculate d from the patient's s dana creatinine usin g the MDRD equation.I t is NOT the patient 's actual GFR. The eGFR provides a more clinicallyusefu l measure of kidn ey disease than se rum creatinine alone.This calculation kalli es sex and race into account, if the informationis provided. If th e race is not provided , and the patient isDavid-Elsa can, multiply by 1.2 12. If sex is not prov ided, and thepatient is female, multipl y by 0.742. Results for patients <18 ye ars ofage have not been validated by th e MDRD study and vitor d be interpretedwith caution.eGFR Re sult Interpretation: eGFR > or = 60 is in t he Normal RangeeGF R < 60 may mean kidney diseaseeGFR < 1 5 may mean kidney failureRange s recommended by the National Kidney Foundation,http ://nkd ep.nih.gov Lipid [id number] 20:44:00 Test Item Value Reference Range Interpretation Comments Cholesterol (test 253 mg/dL 0-200 H code = CHOL) Triglycerides (test 124 mg/dL 9-200 N code = TRIG) HDL (test code = 83 mg/dL 50-60 H HDL) Chol/HDL (test code 3.0 Ratio 0.0-4.4 N = CHOLPHDL) LDL, Calculated 145 0-130 H (NOTE)RISK O F HEART (test code = LDLC) DISEASEPu blished by [place] Heart AssociationAnal yte Optim al Boderline Increased RiskC HOL <200 200-239 >240TRI G <150 150-199 >200HDL Male: >60 <40HDL Female: >60 <50 LDL < 100 130-15 9 >160 LDL NEAR OPTIMAL IS 100- 129 VLDL (test code = 25 mg/dL 5-40 N VLDL) LDL/HDL (test code = 2 LDLPHDL) [id number] 18:45:16Few /LPF (03/05/2013 13:45:16)[facility] OJEFVJEYLT0670-57-47 18:45:16Few /HPF (03/05/2013 13:45:16)[facility] QPWFJJJZXG5921-19-29 18:45:160-2 /HPF (03/05/2013 13:45:16)[facility] NUZXXVIJOF7020-65-81 18:45:160-2 /HPF (03/05/2013 13:45:16)[facility] WWXSDWQUFC5203-77-15 18:45:16Negative *NA*(03/05/2013 13:45:16)[facility] LPIZUKBMQB8733-63-42 18:45:16Negative (03/05/2013 13:45:16)[facility] NPFHFYYNTD5726-82-13 18:45:16Negative (03/05/2013 13:45:16)[facility] EQKTGYTQMP9007-85-69 18:45:16Negative *NA*(03/05/2013 13:45:16)[facility] TARRSOWDHF7760-53-08 18:45:16 Test Item Value Reference Range Interpretation Comments UA Spec Grav (test code = UA Spec 1.020 1 N Grav) [facility] WusqosmWGGZWZTQCA7544-02-49 18:45:16Negative (03/05/2013 13:45:16) [facility] CxjsctpDZIKPVJJAE2843-97-08 18:45:16Few /LPF (03/05/2013 13:45:16) [facility] UfcpfrqWLQYTFVECV0126-76-06 18:45:16Negative (03/05/2013 13:45:16) [facility] YhkwamrRACTEHERXJ0723-68-69 18:45:16Negative (03/05/2013 13:45:16) [facility] AkyfnrfGNGCSVULXP1395-21-94 18:45:16 Test Item Value Reference Range Interpretation Comments UA pH (test code = UA pH) 7.0 1 5.0-8.0 N [facility] BqidbugYWTBEQWSOG0112-51-62 18:45:160.2[facility] 2013-[facility]-05 18:45:16Yellow *NA*(03/05/2013 13:45:16)[facility] 2013-03-05 18:45:16Cloudy *ABN*(03/05/2013 13:45:16)[facility] 2013[facility]05 17:48:0021[facility] LwdkmeuICGSOLVUZ6975-83-88 17:48:0098[facility] ToppdnaAABYTQSNF6509-93-27 17:48:0016[facility] EpetgfdOOIPSVKNT9417-97-29 17:48:0010.9[facility] QwqvcxlCQGJDZTCC6238-60-76 17:48:000.9[facility] LXCLGOQMM3325-42-75 17:48:003.8[facility] LxyezssEPXBVNAJG2888-35-13 17:48:29455 [facility] SrzsswwWMPXPRGLU0330-20-61 17:48:003.9[facility]annCHEMISTRY 2013-03-05 17:48:37242Gqqvsvld OpmausgQFJNGZRPS7936-13-45 17:48:0037[facility] QkequszSLLYNHGBS2092-93-80 17:48:003.4[facility] PnsgixeZIRGOHGFY6459-67-71 17:48:008.6[facility] HwkqoiyVYCBXUVJP8052-67-65 17:48:0031[facility] ZCXEIUBOZ4403-30-12 17:48:007.2[facility] BrfqqarZYFZFAARW8627-23-58 17:48:0091 [facility] GmuloyxOQIFDTYER0537-14-41 17:48:0011[facility]annCHE[facility]Y 2013-03-05 17:48:000.7[facility] RbljxmeARGIDRZIS7355-20-15 17:48:15210Amjtxfcy SjmxsogGELNOHVXZ2480-96-18 17:48:33638Zwkuxleb OscbpklCSKYKLYJA2059-65-33 17:48:0014[facility] GngjmxiLLZYIWTEL2238-38-43 17:48:000.2[facility] CFGWTVUITV8211-60-56 17:48:000.1[facility] TaawpydTHRUTQRLNU1926-28-74 17:48:002.1 [facility] LyjcwsvHYXYGYGFPV5963-26-87 17:48:003.1[facility]annHEMATOLOGY 2013-03-05 17:48:000.3[facility] CoavlcxGLPATPORSW3420-75-38 17:48:0054.8[facility] UzrnqxkFBKSLNOGWZ4976-83-88 17:48:0037.7[facility] SenvihkOTBJQSIMKU9435-26-20 17:48:005.0[facility] EsabrorWJVEWJHALV7981-40-46 17:48:000.4[facility] KPHBAKMLXH8419-36-56 17:48:002.1[facility] HnhrzgyGBAAHYSNLH0549-30-95 17:48:000.0 [facility] IyrrbtmCYCVGIWPRK3765-57-63 17:48:005.7[facility]annHEMATOLOGY 2013-03-05 17:48:004.26[facility] WigtbkpECOYSFTNTC3261-70-50 17:48:0011.6[facility] KqfafifICJRIEYHHC4046-31-73 17:48:0017.5[facility] RqfoketPLCNPJTOBI5263-30-90 17:48:0035.5[facility] FqtbnuxGGVDQTLOTE7834-78-88 17:48:0083.4[facility] VKVBOERQUQ1413-45-86 17:48:0032.5[facility] XobceljSGOJQTMSFE6375-64-70 17:48:00 Test Item Value Reference Range Interpretation Comments MCH (test code = MCH) 27.1 pg 27.0-31.0 N [facility] YaevjqoNAPECBXWVW8715-38-37 17:48:37886Fhqslaye HermannHEMATOLOGY 2013-03-05 17:48:009.1[facility] NnxakgfJEKUDARGWW4151-97-08 17:48:00Negative *NA*(03/05/2013 12:48:00)[facility]
[2021-02-19 21:52] LABS: Absolute Lymphocytes (CBC) 2.3 K/uL (0.7-4.9); Basophils % 0.4 % (0-1.3); Hematocrit 35.9 % (36.0-45.0); MPV 8.4 fL (7.6-11.3); RBC Red Blood Cell Count 4.66 M/uL (3.86-4.86)
[2021-02-19 21:54] LABS: Protime INR 1.16
[2021-02-19 22:03] LABS: Urine Blood Trace-intact (Negative); Urine Glucose Negative (Negative); Urine Protein Negative (Negative)
[2021-02-19 22:06] LABS: ALT/SGPT 36 U/L (12-78); AST/SGOT 20 U/L (15-37); Albumin 3.7 g/dL (3.4-5.0); Alkaline Phosphatase 219 U/L (45-117); BUN Blood Urea Nitrogen 6 mg/dL (7-18); Bicarbonate 30 mmol/L (21-32); Bilirubin Direct < 0.1 mg/dL (0-0.2); Glucose Level 96 mg/dL (74-106); Lipase 56 U/L (73-393); Magnesium 2.2 mg/dL (1.8-2.4); Potassium 4.1 mmol/L (3.5-5.1); Protein, Total 8.2 g/dL (6.4-8.2); Sodium Level 141 mmol/L (136-145)
[2021-02-19] MEDS ORDERED: ONDANSETRON 4 MG/2 ML VIAL ONE (22:20)
[2021-02-19] MEDS ORDERED: FENTANYL CITR 100 MCG/2 ML ONE (22:20)
[2021-02-19 22:34] LABS: Bilirubin Total < 0.1 mg/dL (0.2-1.0)
[2021-02-19 23:58] LABS: Urine Bacteria <20 /HPF (<20); Urine RBC NONE SEEN /HPF (NONE SEEN)
[2021-02-20] MEDS ORDERED: DICYCLOMINE HCL 10 MG CAP ONE (00:21)
[2021-02-20] MEDS ORDERED: PANTOPRAZOLE 40 MG INJ ONE (00:21)
--- NOTE | 2021-02-20 00:27 | ER ---
Nurse's Notes [facility] Name: Leeann Schuler Age: 51 yrs Sex: Female : 1970 Arrival Date: 02/19/2021 Time: 20:22 Bed 6 Private MD: Diagnosis: Upper abdominal pain, unspecified;Nausea Presentation: 02/19 20:26 Chief complaint: Patient states: Abdominal pain in her right upper abdomen and flank wg area starting around 4pm. Pt c/o nausea for the past 24 hours, no vomiting, has had diarrhea on and off for 3 months. Pt states she takes flexeril, hydrocodone and it didn't help with the pain. Pt states she is supposed to have an ERCP. Coronavirus screen: Vaccine status: Patient reports being unvaccinated. Ebola Screen: Patient negative for fever greater than or equal to 101.5 degrees Fahrenheit, and additional compatible Ebola Virus Disease symptoms Patient denies exposure to infectious person. Patient denies travel to an Ebola-affected area in the 21 days before illness onset. No symptoms or risks identified at this time. Initial Sepsis Screen: Does the patient meet any 2 criteria? No. Patient's initial sepsis screen is negative. Does the patient have a suspected source of infection? No. Patient's initial sepsis screen is negative. Risk Assessment: Do you want to hurt yourself or someone else? Patient reports no desire to harm self or others. Onset of symptoms was February 18, 2021. Care prior to arrival: Medication(s) given: Flexeril, Hydrocodone. 20:26 Method Of Arrival: Ambulatory 20:26 Acuity: GM 3 wg Triage Assessment: 20:31 General: Appears distressed, uncomfortable, obese, well groomed, Behavior is wg cooperative, appropriate for age, anxious. Pain: Complains of pain in Right upper Quadrant radiating into R flank area. Right flank/epigastric area. EENT: No deficits noted. Neuro: No deficits noted. Cardiovascular: No deficits noted. Respiratory: No deficits noted. GI: Reports lower abdominal pain, diarrhea, bloody stool, nausea, Patient currently denies vomiting. : No deficits noted. Derm: No deficits noted. Musculoskeletal: No deficits noted. Historical: - Allergies: 21:45 Morphine (Anaphylaxis); ms4 21:45 PENICILLINS (Anaphylaxis); ms4 21:45 Amitriptyline (suicidal thoughts); ms4 21:45 Ampicillin (Anaphylaxis); ms4 21:45 Cefazolin (Hives); ms4 21:45 Cephalexin (Hives); ms4 21:45 Clindamycin (Hives); ms4 21:45 Codeine (Anaphylaxis); ms4 21:45 Erythromycin; ms4 21:45 Promethazine (Anaphylaxis); ms4 21:45 sulfacetamide; ms4 21:45 Tetracycline; ms4 21:45 Trimethoprim-Sulfamethoxazole; ms4 21:45 warfarin; ms4 21:45 ciprofloxacin (Hives); ms4 21:45 sertraline; ms4 21:45 SUMATRIPTAN; ms4 21:45 gabapentin; ms4 21:45 Celecoxib (Hives); ms4 21:45 Duloxetine (Hives, Rash); ms4 21:45 apixaban (Anaphylaxis); ms4 21:45 Tetanus Vaccines \T\ Toxoid; ms4 - Immunization history:: Adult Immunizations up to date. - Social history:: Smoking status: unknown. Screenin:52 Abuse screen: Denies threats or abuse. Denies injuries from another. Nutritional ms4 screening: No deficits noted. Tuberculosis screening: No symptoms or risk factors identified. Fall Risk None identified. Assessment: 21:52 Reassessment: Patient appears in no apparent distress at this time. No changes from ms4 previously documented assessment. Patient and/or family updated on plan of care and expected duration. Pain level reassessed. Patient is alert, oriented x 3, equal unlabored respirations, skin warm/dry/pink. General: Appears in no apparent distress. Behavior is calm, cooperative, appropriate for age. Pain: Complains of pain in RUQ abdomen. Neuro: No deficits noted. Cardiovascular: No deficits noted. Respiratory: No deficits noted. GI: Bowel sounds present X 4 quads. Abd is soft and non tender Reports upper abdominal pain, diarrhea, vomiting. Vital Signs: 20:26 BP 157 / 84; Pulse 81; Resp 18; Temp 98.4; Pulse Ox 100% on R/A; Weight 132 kg; Height wg 5 ft. 7 in. (170.18 cm); Pain 10/10; 22:19 BP 138 / 83; Pulse 74; Resp 18; Pulse Ox 98% ; ms4 02/20 00:03 BP 121 / 65; Pulse 74; Resp 18; Pulse Ox 99% ; Pain 0/10; ms4 02/19 20:26 Body Mass Index 45.58 (132.00 kg, 170.18 cm) ED Course: 02/19 20:22 Patient arrived in ED. wm 20:31 Triage completed. wg 20:31 Arm band placed on right wrist. wg 20:57 Kike Reynoso PA is PHCP. cp 20:57 Ignacio Armas MD is Attending Physician. cp 21:52 No provider procedures requiring assistance completed. Inserted saline lock: 20 gauge ms4 in left antecubital area, using aseptic technique. Blood collected. 22:03 CT Abd/Pelvis - IV Contrast Only Sent. ms4 23:17 CT Abd/Pelvis - IV Contrast Only In Process Unspecified. EDMS 02/20 00:26 Bethel Stewart MD is Referral Physician. cp 00:37 Patient has correct armband on for positive identification. ms4 00:37 IV discontinued, intact, bleeding controlled. ms4 Administered Medications: 02/19 21:48 CANCELLED (Patient reports allergy to morphine): morphine 4 mg IVP once; RASS on ADMIN: lp1 Combtv4, Very Agttd3, Agttd2, Rstlss1, AlertClm0, Drwsy-1, Lt Sdtn-2, Mod Sdtn-3, Dp Sdtn-4, UnArsble-5 22:03 Drug: fentaNYL (PF) 25 mcg Route: IVP; Site: left antecubital; ms4 22:04 Drug: Zofran (Ondansetron) 4 mg Route: IVP; Site: left antecubital; ms4 02/20 00:01 Drug: Bentyl (dicyclomine) 20 mg Route: PO; ms4 00:01 Drug: ProTONIX (pantoprazole) 40 mg Route: IVP; Site: left antecubital; ms4 Outcome: 00:26 Discharge ordered by . cp 00:37 Discharged to home ambulatory. ms4 00:37 Condition: stable 00:37 Discharge instructions given to patient, Instructed on discharge instructions, follow up and referral plans. Demonstrated understanding of instructions, follow-up care, medications, Prescriptions given X 4. 00:37 Patient left the ED. ms4 Signatures: Dispatcher [employer] EDMS Kike Reynoso PA PA cp Clement, Melodie wm Sammy, Maria Alejandra, RN RN ms4 Pierce Wallis RN Radha Meredith RN lp1 Corrections: (The following items were deleted from the chart) 02/19 21:26 Allergies: Morphine; ms4 21:26 Allergies: PENICILLINS; ms4 21:45 Allergies: sulfamethoxazole-trimethoprim; ms4 ms4
--- NOTE | 2021-02-20 00:27 | EDPHYS ---
Physician Documentation [facility] Name: Leeann Schuler Age: 51 yrs Sex: Female : 1970 Arrival Date: 02/19/2021 Time: 20:22 Bed 6 Private MD: ED Physician Ignacio Armas HPI: 02/19 21:25 This 51 yrs old Female presents to ER via Ambulatory with complaints of cp Abdominal Pain, Diarrhea. 21:25 The patient presents with abdominal pain in the epigastric area, in the right upper cp quadrant. 21:25 Onset: The symptoms/episode began/occurred today. cp 21:25 The symptoms radiate to the right flank, between shoulder blades. Associated signs and cp symptoms: Pertinent positives: blood in stools, diarrhea, nausea, Pertinent negatives: anorexia, constipation, dysuria, fever, vomiting. The patient has experienced similar episodes in the past, multiple times. Patient reports she has been referred to GI for scope and blood in stool has been for past several months. Patient denies fever. Reports history of anemia and receives iron infusion. Historical: - Allergies: 21:45 Morphine (Anaphylaxis); ms4 21:45 PENICILLINS (Anaphylaxis); ms4 21:45 Amitriptyline (suicidal thoughts); ms4 21:45 Ampicillin (Anaphylaxis); ms4 21:45 Cefazolin (Hives); ms4 21:45 Cephalexin (Hives); ms4 21:45 Clindamycin (Hives); ms4 21:45 Codeine (Anaphylaxis); ms4 21:45 Erythromycin; ms4 21:45 Promethazine (Anaphylaxis); ms4 21:45 sulfacetamide; ms4 21:45 Tetracycline; ms4 21:45 Trimethoprim-Sulfamethoxazole; ms4 21:45 warfarin; ms4 21:45 ciprofloxacin (Hives); ms4 21:45 sertraline; ms4 21:45 SUMATRIPTAN; ms4 21:45 gabapentin; ms4 21:45 Celecoxib (Hives); ms4 21:45 Duloxetine (Hives, Rash); ms4 21:45 apixaban (Anaphylaxis); ms4 21:45 Tetanus Vaccines \T\ Toxoid; ms4 - Immunization history:: Adult Immunizations up to date. - Social history:: Smoking status: unknown. ROS: 21:30 Constitutional: Negative for body aches, chills, fever, poor PO intake. cp 21:30 Eyes: Negative for injury, pain, redness, and discharge. cp 21:30 ENT: Negative for ear pain, sore throat, difficulty swallowing, difficulty handling secretions. 21:30 Cardiovascular: Negative for chest pain. 21:30 Respiratory: Negative for cough, shortness of breath, wheezing. 21:30 Abdomen/GI: Positive for abdominal pain, nausea, diarrhea, Negative for vomiting, constipation. 21:30 Back: Positive for radiated pain. 21:30 : Negative for urinary symptoms. 21:30 Skin: Negative for cellulitis, rash. 21:30 Neuro: Negative for altered mental status, headache, syncope, weakness. 21:30 All other systems are negative. Exam: 21:40 Constitutional: The patient appears in no acute distress, alert, awake, cp non-diaphoretic, non-toxic, well developed, well nourished, obese. 21:40 Head/Face: Normocephalic, atraumatic. cp 21:40 Eyes: Periorbital structures: appear normal, Conjunctiva: normal, no exudate, no injection, Sclera: no appreciated abnormality, Lids and lashes: appear normal, bilaterally. 21:40 ENT: External ear(s): are unremarkable, Nose: is normal, Mouth: Lips: moist, Oral mucosa: moist, Posterior pharynx: Airway: no evidence of obstruction, patent. 21:40 Chest/axilla: Inspection: normal, Palpation: is normal, no crepitus, no tenderness. 21:40 Cardiovascular: Rate: normal, Rhythm: regular, Edema: is not appreciated, JVD: is not appreciated. 21:40 Respiratory: the patient does not display signs of respiratory distress, Respirations: normal, no use of accessory muscles, no retractions, labored breathing, is not present, Breath sounds: are clear throughout, no decreased breath sounds, no stridor, no wheezing. 21:40 Abdomen/GI: Inspection: obese Bowel sounds: active, all quadrants, Palpation: soft, in all quadrants, moderate abdominal tenderness, in the epigastric area and right upper quadrant, rebound tenderness, is not appreciated, involuntary guarding, is not appreciated. 21:40 Back: pain, that is mild, of the thoracic area, ROM is normal. 21:40 Skin: no rash present. 21:40 Neuro: Orientation: to person, place \T\ time. Mentation: is normal, Motor: moves all fours, strength is normal, Sensation: no obvious gross deficits, Gait: is steady, with use of walker. Vital Signs: 20:26 BP 157 / 84; Pulse 81; Resp 18; Temp 98.4; Pulse Ox 100% on R/A; Weight 132 kg; Height wg 5 ft. 7 in. (170.18 cm); Pain 10/10; 22:19 BP 138 / 83; Pulse 74; Resp 18; Pulse Ox 98% ; ms4 02/20 00:03 BP 121 / 65; Pulse 74; Resp 18; Pulse Ox 99% ; Pain 0/10; ms4 02/19 20:26 Body Mass Index 45.58 (132.00 kg, 170.18 cm) wg MDM: 02/19 21:05 Patient medically screened. cp 22:00 Differential diagnosis: bowel obstruction, diverticulitis, gastritis, non-specific abd cp pain, pancreatitis, Peptic Ulcer Disease, Perf. Duodenal Ulcer, Perf. Gastric Ulcer, Ureterolithiasis, urinary tract infection. 02/20 00:25 Data reviewed: vital signs, nurses notes, lab test result(s), radiologic studies, CT cp scan. 00:25 Counseling: I had a detailed discussion with the patient and/or guardian regarding: the cp historical points, exam findings, and any diagnostic results supporting the discharge/admit diagnosis, lab results, radiology results, the need for outpatient follow up, for definitive care, a natural remedy consultant, to return to the emergency department if symptoms worsen or persist or if there are any questions or concerns that arise at home. Response to treatment: the patient's symptoms have markedly improved after treatment. Special discussion: Based on the patient's Hx, exam, and Dx evaluation, there is no indication for emergent surgery or inpatient Tx. It is understood by the patient/guardian that if the Sx's persist or worsen they need to return immediately for re-evaluation. ED course: VSS. Labs and radiology studies reviewed. H/H stable. Will discharge to home for continued monitoring. 02/19 20:34 Order name: Basic Metabolic Panel; Complete Time: 23:39 wg 02/19 23:40 Interpretation: Normal except: BUN 6; CRE 0.51. cp 02/19 20:34 Order name: CBC with Diff; Complete Time: 22:19 02/19 22:19 Interpretation: Normal except: HGB 11.4; HCT 35.9; MCV 77.0; MCH 24.5; MCHC 31.8; RDW cp 17.5. 09 20:34 Order name: Hepatic Function; Complete Time: 23:39 wg 02/19 23:40 Interpretation: Normal except: ALK 219; GLOB 4.5; A/G 0.8. cp 02/19 20:34 Order name: Lipase; Complete Time: 23:39 wg 02/19 21:16 Order name: PT-INR cp 02/19 21:16 Order name: Ptt, Activated; Complete Time: 22:19 cp 02/19 21:16 Order name: Urine Microscopic Only 02/19 21:16 Order name: Type And Screen 02/19 21:16 Order name: Protime (+INR); Complete Time: 22:19 EDHI 02/19 23:42 Interpretation: Abnormal: PT 13.4. 02/19 21:17 Order name: Occult Blood; Complete Time: 23:39 cp 02/19 21:17 Order name: Ova And Parasites 02/19 21:17 Order name: Stool Culture 02/19 21:17 Order name: CDIFF 02/19 20:34 Order name: IV Saline Lock; Complete Time: 21:16 02/19 20:34 Order name: Labs collected and sent; Complete Time: 21:16 02/19 21:16 Order name: Urine Dipstick-Ancillary (obtain specimen); Complete Time: 22:03 cp 02/19 21:17 Order name: CT Abd/Pelvis - IV Contrast Only 02/19 21:35 Order name: Magnesium; Complete Time: 23:39 EDHI 02/19 22:03 Order name: Urine Dipstick-Ancillary; Complete Time: 22:19 EDHI 02/19 23:52 Order name: PO challenge; Complete Time: 00:01 cp Administered Medications: 02/19 21:48 CANCELLED (Patient reports allergy to morphine): morphine 4 mg IVP once; RASS on ADMIN: lp1 Combtv4, Very Agttd3, Agttd2, Rstlss1, AlertClm0, Drwsy-1, Lt Sdtn-2, Mod Sdtn-3, Dp Sdtn-4, UnArsble-5 22:03 Drug: fentaNYL (PF) 25 mcg Route: IVP; Site: left antecubital; ms4 22:04 Drug: Zofran (Ondansetron) 4 mg Route: IVP; Site: left antecubital; ms4 02/20 00:01 Drug: Bentyl (dicyclomine) 20 mg Route: PO; ms4 00:01 Drug: ProTONIX (pantoprazole) 40 mg Route: IVP; Site: left antecubital; ms4 Disposition: 06:45 Co-signature as Attending Physician, Ignacio Armas MD I agree with the assessment and tw4 plan of care. Disposition Summary: 02/20/21 00:26 Discharge Ordered Location: Home cp Problem: an ongoing problem cp Symptoms: have improved cp Condition: Stable cp Diagnosis - Upper abdominal pain, unspecified cp - Nausea cp Followup: cp - With: Bethel Stewart MD - When: 2 - 3 days - Reason: Recheck today's complaints Discharge Instructions: - Discharge Summary Sheet cp - Abdominal Pain, Adult cp - Nausea, Adult cp Forms: - Medication Reconciliation Form cp - Thank You Letter cp - Antibiotic Education cp - Prescription Opioid Use cp Prescriptions: - Carafate 1 gram Oral Tablet - take 1 tablet by ORAL route 4 times per day take on an empty stomach, beginning cp on waking and last dose at bedtime. dissolve tablet in 8 ounces warm water prior to ingestion; 100 tablet; Refills: 0, Product Selection Permitted - Protonix 40 mg Oral Tablet - take 1 tablet by ORAL route once daily; 30 tablet; Refills: 0, Product cp Selection Permitted - Zofran 4 mg Oral Tablet - take 1 tablet by ORAL route every 12 hours As needed; 20 tablet; Refills: 0, cp Product Selection Permitted - dicyclomine 20 mg Oral Tablet - take 1 tablet by ORAL route 4 times per day; 30 tablet; Refills: 0, Product cp Selection Permitted Signatures: Dispatcher [employer] EDMS Kike Reynoso PA PA cp Wadley, Terrence, MD MD tw4 Maria Alejandra Christianson RN RN ms4 Pierce Wallis RN wg Pena, Laura RN lp1 Corrections: (The following items were deleted from the chart) 02/19 21:35 21:16 MAGNESIUM+C.LAB.BRZ ordered. EDMS EDMS 21:48 21:16 morphine 4 mg IVP once; RASS on ADMIN: Combtv4, Very Agttd3, Agttd2, Rstlss1, lp1 AlertClm0, Drwsy-1, Lt Sdtn-2, Mod Sdtn-3, Dp Sdtn-4, UnArsble-5 ordered. cp : 21:26 Allergies: Morphine; wg ms4 21:26 Allergies: PENICILLINS; wg ms4 51 21:45 Allergies: sulfamethoxazole-trimethoprim; ms4 ms4
[2021-02-20 00:52] VITALS: TEMP 98.4
[2021-02-20 00:55] VITALS: BP 121/65; O2SAT 99
--- NOTE | 2021-02-20 09:35 | RAD REPORT ---
EXAM DESCRIPTION: CT - Abdomen Pelvis W Contrast - 02/20/2021 5:24 am CLINICAL HISTORY: ABD PAIN. COMPARISON: None. TECHNIQUE: CT of the abdomen and pelvis was performed following intravenous administration of iodina daryl contrast. Arterial phase images through the abdomen and portal venous phase images of the abdomen and pelvis were obtained. Oral contrast was not administered. Axial, coronal, and sagittal soft tiss ue window reconstructions were created and sent to PACS. This exam was performed according to our departmental dose-optimization program, which includes autom ated exposure control, adjustment of the mA and/or kV according to patient size and/or use of iterati ve reconstruction technique. FINDINGS: Thoracic: No significant abnormality. Hepatobiliary: Mild hepatomegaly, measuring 18 cm in length. No concerning hepatic lesion identified. The hepatic and portal veins are patent. The gallbladder is surgically absent. No biliary ductal dil atation. Pancreas: Unremarkable. Spleen: Unremarkable. Gastrointestinal: No evidence of bowel obstruction or perienteric inflammation. The appendix is surgi brea absent. Mild right and left colonic diverticulosis. Small amount of fecal material throughout t he colon. Nonspecific fecalization in the terminal ileum. Adrenals: Small bilateral adrenal gland nodules, measuring 1.9 cm on the left, and 1.6 cm and 1.7 cm on the right. These are between 10 and 20 Hounsfield units. Renal: No concerning parenchymal abnormality in either kidney. No hydronephrosis or urolithiasis. Bladder/Reproductive: Unremarkable appearance of the urinary bladder by CT technique. Hysterectomy. Vascular/Lymphatics: No lymphadenopathy identified by CT size criteria. The major visceral vessels ar e patent. Mild atherosclerosis. Infrarenal IVC filter in place. 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 Abdominal aorta is normal in caliber. Musculoskeletal: No concerning osseous lesion identified. Posterior fusion hardware at L5-S1 where th ere is grade 1 anterolisthesis. Fluid / peritoneum: No significant free fluid. No free intraperitoneal air identified. IMPRESSION 1. No acute abnormality identified in the abdomen or pelvis by CT. 2. Mild colonic diverticulosis without evidence of acute diverticulitis. 3. Mild hepatomegaly. 4. Small bilateral adrenal gland nodules, likely benign adenomas. Consider correlation with [facility] adrenal protocol MRI or CT, if clinically necessary. Electronically signed by: Liliya Rosas MD 02/19/2021 11:36 PM CDT Due to temporary technical issues with the PACS/Fluency reporting system, reports are being signed by the in house radiologist without review as a courtesy to ensure prompt reporting. The interpreting r adiologist is fully responsible for the content of the report.
[2021-02-24 08:13] LABS: C.diff Antigen/Toxin Ag neg : Tox neg (NEG : NEG)
== END 2021-02-20 00:37 | disposition home or self-care (01) ==
LOC: ER 20:18
DX: R10.11 Right upper quadrant pain (principal); R11.0 Nausea; Z88.0 Allergy status to penicillin; Z88.1 Allergy status to other antibiotic agents; Z88.2 Allergy status to sulfonamides; Z88.3 Allergy status to other anti-infective agents; Z88.5 Allergy status to narcotic agent; Z88.7 Allergy status to serum and vaccine; Z88.8 Allergy status to other drugs, medicaments and biological substances
CPT/HCPCS: 87045; 85025; 80048; 36415; 86900; 83735; 86850; 87177; 82274; 85610; 86901; 80076; 87046; 85730; 87209; 87324; 83690; 87449; 74177; 96375; 96374; 99284; Q9967; J3010; J2405; 81003; 81015